=== PATIENT | male | born 1935 | race Caucasian/White ===

== ENCOUNTER → 2016-10-29 | Outpatient (CLI) | payer MEDICARE ==
--- NOTE | 2016-10-29 16:55 | PCVCIMAG ---
EXAM: BILATERAL LOWER EXTREMITY ARTERIAL DUPLEX INDICATION: Peripheral Arterial Disease. Leg pain. FINDINGS: Right Leg: Satisfactory arterial waveforms throughout the common/profunda/superficial femoral, popliteal, anterior tibial, peroneal, and posterior tibial arteries. No flow limiting stenosis seen. Left Leg: Satisfactory arterial waveforms throughout the common/profunda/superficial femoral, popliteal, anterior tibial, peroneal, and posterior tibial arteries. No flow limiting stenosis seen. IMPRESSION: No flow limiting stenosis in the right lower extremity. No flow limiting stenosis in the left lower extremity. LOC:[id number]
== END | disposition home or self-care (01) ==
LOC: PCVCIMAG 14:58
PROVIDERS: ATTEND Nuclear Medicine Nuclear Cardiology
DX: I73.9 Peripheral vascular disease, unspecified (principal); I48.91 Unspecified atrial fibrillation; I44.2 Atrioventricular block, complete; I42.8 Other cardiomyopathies; I10 Essential (primary) hypertension; E78.00 Pure hypercholesterolemia, unspecified; I87.2 Venous insufficiency (chronic) (peripheral); Z79.01 Long term (current) use of anticoagulants; Z95.0 Presence of cardiac pacemaker; Z88.6 Allergy status to analgesic agent; Z79.899 Other long term (current) drug therapy; Z96.653 Presence of artificial knee joint, bilateral
CPT/HCPCS: 93925; G0463

== ENCOUNTER → 2016-10-31 | Outpatient (CLI) | payer MEDICARE ==
--- NOTE | 2016-11-01 08:14 | PCVCIMAG ---
EXAM: NONINVASIVE ARTERIAL EXAMINATION OF BOTH LOWER EXTREMITIES INCLUDING PRE AND POST EXERCISE PRESSURE MEASUREMENTS AND DOPPLER WAVEFORMS INDICATION: Peripheral Arterial Disease. Leg pain. FINDINGS: Right Brachial: 143 mm Hg. Right Dorsalis Pedis: 157 mm Hg. Right Posterior Tibial: 133 mm Hg. Right YANETH = 1.03. Left Brachial: 152 mm Hg. Left Dorsalis Pedis: 242 mm Hg. Left Posterior Tibial: 107 mm Hg. Left YANETH = 1.59. Post Exercise: Left Brachial 158 mm Hg. Right dorsalis pedis: 195 mm Hg. Left dorsalis pedis: 206 mm Hg. Right YANETH = 1.23. Left YANETH = 1.30. IMPRESSION: No resting ischemia in the right lower extremity. No exercise induced ischemia in the right lower extremity. No resting ischemia in the left lower extremity. No exercise induced ischemia in the left lower extremity. LOC:[id number]
== END | disposition home or self-care (01) ==
LOC: PCVCIMAG 10:10
PROVIDERS: ATTEND Nuclear Medicine Nuclear Cardiology
DX: I73.9 Peripheral vascular disease, unspecified (principal); R60.0 Localized edema
CPT/HCPCS: 93923; 93924

== ENCOUNTER → 2018-06-20 | Outpatient (CLI) | payer MEDICARE ==
--- NOTE | 2018-06-20 16:19 | PCVCIMAG ---
EXAM: BILATERAL SUPERFICIAL VENOUS DUPLEX INDICATION: Leg pain and swelling. FINDINGS: Right leg: No thrombus in the common femoral, main femoral, or popliteal veins. These veins are compressible. Right Great Saphenous Vein: At the saphenofemoral junction the diameter is 8.9 mm, in the mid thigh it is 6.0 mm, and in the calf it is 5.9 mm. There is significant venous insufficiency/reflux throughout. Venous insufficiency/reflux duration is 1.7 seconds. Right Small Saphenous Vein: At the saphenopopliteal junction the diameter is 10.4 mm, and in the calf it is 8.2 mm. There is significant venous insufficiency/reflux throughout. Venous insufficiency/reflux duration is 3.3 seconds. There is not a cranial extension present. Left leg: No thrombus in the common femoral, main femoral, or popliteal veins. These veins are compressible. Left Great Saphenous Vein: At the saphenofemoral junction the diameter is 9.4 mm, in the mid thigh it is 6.0 mm, and in the calf it is 7.5 mm. There is significant venous insufficiency/reflux throughout. Venous insufficiency/reflux duration is 3.9 seconds. Left Small Saphenous Vein: At the saphenopopliteal junction the diameter is 10.4 mm, and in the calf it is 7.8 mm. There is significant venous insufficiency/reflux throughout. Venous insufficiency/reflux duration is 3.8 seconds. There is not a cranial extension present. IMPRESSION: Right Great Saphenous Vein: Significant venous insufficiency/reflux is present as noted above. Right Small Saphenous Vein: Significant venous insufficiency/reflux is present as noted above. Left Great Saphenous Vein: Significant venous insufficiency/reflux is present as noted above. Left Small Saphenous Vein: Significant venous insufficiency/reflux is present as noted above. LOC:[id number]
== END | disposition home or self-care (01) ==
LOC: PCVCIMAG 14:52
PROVIDERS: ATTEND Nuclear Medicine Nuclear Cardiology
DX: I87.2 Venous insufficiency (chronic) (peripheral) (principal)
CPT/HCPCS: 93970

== ENCOUNTER → 2018-06-24 | Outpatient (CLI) | payer MEDICARE | END | disposition home or self-care (01) | LOC: PCVCCLINIC 10:35 | PROVIDERS: ATTEND Nuclear Medicine Nuclear Cardiology | DX: I87.2 Venous insufficiency (chronic) (peripheral) (principal); I10 Essential (primary) hypertension; I48.91 Unspecified atrial fibrillation; E78.00 Pure hypercholesterolemia, unspecified; Z79.01 Long term (current) use of anticoagulants; Z95.0 Presence of cardiac pacemaker; Z79.899 Other long term (current) drug therapy; Z88.5 Allergy status to narcotic agent | CPT/HCPCS: G0463 ==

== ENCOUNTER → 2018-06-26 | Outpatient (CLI) | payer MEDICARE ==
[~2018-06-26] MED LIST: DIAZEPAM 10 MG TABLET. ONE; HEPARIN for SUB-Q USE 5,000 UNIT/ML VIAL. SQ ONE; IOHEXOL 300 MG/ML 100ML VIAL. ONE; IV NORMAL SALINE 500ML BAG 500 ML ONE; LIDOCAINE 1% Multi-Dose 20 ML VIAL. ONE; MIDAZOLAM HCL/PF 2 MG/2 ML VIAL. ONE; fentaNYL PF VIAL 100 MCG/2 ML VIAL ONE
--- NOTE | 2018-06-26 13:03 | PCVCINTER ---
EXAM: 1. INTRAVASCULAR ULTRASOUND OF THE INFERIOR VENA CAVA 2. INTRAVASCULAR ULTRASOUND OF THE RIGHT COMMON AND EXTERNAL ILIAC AND COMMON FEMORAL VEINS 3. INTRAVASCULAR ULTRASOUND OF THE LEFT COMMON AND EXTERNAL ILIAC AND COMMON FEMORAL VEINS 4. INFERIOR VENA CAVA AND BILATERAL ILIOFEMORAL VENOGRAPHY INDICATION: Iliofemoral venous obstruction. Chronic Venous Insufficiency Class 5. Leg pain and swelling. Failed conservative therapy including medical grade compression stockings for at least 3 months. Venous hypertension chronic. PROCEDURE: Procedure and risks of IVC and ileofemoral venography and intravascular ultrasound, and venous stent placement as appropriate including bleeding, infection, venous thrombosis, stent migration/thrombosis, contrast-induced nephropathy requiring dialysis, stroke, and were discussed with the patient and consent obtained. Patient was given IV antibiotics. The patient's right neck and chest was prepped and draped in the normal sterile fashion. IV conscious sedation was used throughout the procedure with appropriate monitoring. Ultrasound was used to interrogate the neck and showed the internal jugular vein to be patent. A spot ultrasound image of the internal jugular vein was saved. Under ultrasound guidance access into the right internal jugular vein was obtained and an 8F sheath was placed to the level of the lower IVC. Catheter was placed into the lower IVC and IVC cavogram performed. Catheter was placed to the level of the right common femoral vein and right iliofemoral venogram obtained. Catheter was placed to the level of the left common femoral vein and left iliofemoral venogram was obtained. The 8 [place] intravascular ultrasound catheter was then placed to the level of the right common femoral vein and intravascular ultrasound evaluation of the right common femoral, right external iliac, and right common iliac veins was accomplished in a pull-back fashion. The 8 [place] intravascular ultrasound catheter was then placed to the level of the left common femoral vein and intravascular ultrasound evaluation of the left common femoral, left external iliac, and left common iliac veins was accomplished in a pull-back fashion. Intravascular ultrasound evaluation of the inferior vena cava was then accomplished in a pullback fashion. Sheath was removed and hemostasis obtained using manual pressure. FINDINGS: IVC INTRAVASCULAR ULTRASOUND: Normal vessel: 20.5 x 24.5 mm. Area = 398.1 sq. mm. RIGHT COMMON ILIAC VEIN INTRAVASCULAR ULTRASOUND: Normal vessel: 12.2. x 19.3 mm. Area = 196.1 sq. mm. RIGHT EXTERNAL ILIAC VEIN INTRAVASCULAR ULTRASOUND: Normal vessel: 15.1 x 19.1 mm. Area = 229.9 sq. mm. RIGHT COMMON FEMORAL VEIN INTRAVASCULAR ULTRASOUND: Normal vessel: 7.5 x 14.6 mm. Area = 97.6 sq. mm. Minimum vessel diameter: 3.7 x 17.0 mm. Area = 57.9 sq. mm. LEFT COMMON ILIAC VEIN INTRAVASCULAR ULTRASOUND: Normal vessel: 17.2 x 23.8 mm. Area = 314.4 sq. mm. Minimum vessel diameter: 6.0 x 15.0 mm. Area = 63.2 sq. mm. LEFT EXTERNAL ILIAC VEIN INTRAVASCULAR ULTRASOUND: Normal vessel: 15.1 x 16.3 mm. Area = 193.2 sq. mm. Minimum vessel diameter: 5.2 x 16.8 mm. Area = 76.8 sq. mm. LEFT COMMON FEMORAL VEIN INTRAVASCULAR ULTRASOUND: Normal vessel: 16.9 x 17.5 mm. Area = 245.0 sq. mm. VENOGRAPHY: INFERIOR VENA CAVA: Vessel is patent without significant stenosis, scarring, or extrinsic compression. RIGHT COMMON ILIAC VEIN: Vessel is patent without significant stenosis, scarring, or extrinsic compression. RIGHT EXTERNAL ILIAC VEIN: Moderate extrinsic compression proximal vessel results in 57% area reduction. RIGHT COMMON FEMORAL VEIN: Mild extrinsic compression proximal vessel results in 41% area reduction. LEFT COMMON ILIAC VEIN: Moderately severe extrinsic compression mid to lower vessel results in 80% area reduction although the absolute area remained greater than 50. LEFT EXTERNAL ILIAC VEIN: Moderate extrinsic compression distal vessel results in 60% area reduction. LEFT COMMON FEMORAL VEIN: Vessel is patent without significant stenosis, scarring, or extrinsic compression. IMPRESSION: Areas of at least moderate extrinsic compression involving the proximal right external iliac vein, mid to lower left common iliac vein, and distal left external iliac vein were identified as reviewed above. These areas were not felt to be critically flow-limiting. LOC:[id number]
== END | disposition home or self-care (01) ==
LOC: PCVCIMAG 09:25
PROVIDERS: ATTEND Nuclear Medicine Nuclear Cardiology
DX: I87.2 Venous insufficiency (chronic) (peripheral) (principal); I87.1 Compression of vein; I48.91 Unspecified atrial fibrillation; I44.2 Atrioventricular block, complete; I42.8 Other cardiomyopathies; I10 Essential (primary) hypertension; E78.00 Pure hypercholesterolemia, unspecified; Z79.01 Long term (current) use of anticoagulants; G47.30 Sleep apnea, unspecified; Z95.0 Presence of cardiac pacemaker; Z98.890 Other specified postprocedural states; Z96.653 Presence of artificial knee joint, bilateral; Z96.642 Presence of left artificial hip joint; Z72.89 Other problems related to lifestyle; Z88.6 Allergy status to analgesic agent; Z79.899 Other long term (current) drug therapy
CPT/HCPCS: 36012; 37252; 37253; 75822; 75825; 76937; 99152; 99153; C1751; C1753; C1769; C1894; J1644; J2250; J3010; J7040; Q9967

== ENCOUNTER → 2018-06-30 | Outpatient (CLI) | payer MEDICARE ==
[~2018-06-30] MED LIST changes: +ARNICA TOPICAL GEL 1.5OZ TUBE. TP ONE; +CEPHALEXIN 250 MG CAPSULE. ONE; -HEPARIN for SUB-Q USE 5,000 UNIT/ML VIAL. SQ ONE; -IOHEXOL 300 MG/ML 100ML VIAL. ONE; +IV NORMAL SALINE 1000ML BAG 1,000 ML ONE; -IV NORMAL SALINE 500ML BAG 500 ML ONE; -LIDOCAINE 1% Multi-Dose 20 ML VIAL. ONE; +LIDOCAINE 1%/EPI 1:100,000 20 ML VIAL. ONE; -MIDAZOLAM HCL/PF 2 MG/2 ML VIAL. ONE; +SODIUM BICARBONATE 50 MEQ/50 ML VIAL. ONE; -fentaNYL PF VIAL 100 MCG/2 ML VIAL ONE
--- NOTE | 2018-06-30 22:36 | PCVCINTER ---
EXAM: RIGHT GREAT SAPHENOUS VEIN ENDOVENOUS LASER ABLATION INDICATION: Chronic Venous Insufficiency Class 5. Leg pain and swelling. Failed conservative therapy including medical grade compression stockings for at least 3 months. Venous hypertension chronic. PROCEDURE: Procedure and risks of endovenous laser ablation including thrombosis, vascular injury, nerve injury, skin necrosis, and infection were discussed with the patient and consent obtained. The right leg was prepped and draped in the normal sterile fashion. Using ultrasound guidance access into the right great saphenous vein was obtained and a 5F 70 cm long catheter was advanced to 2 cm below the saphenofemoral junction. The laser fiber was advanced through the catheter to its tip and the catheter partially retracted. Abundant tumescent anesthesia using a dilute lidocaine solution was given in the perivenous tissues throughout the length of the laser fiber. Ultrasound confirmed good position of the distal tip of the laser fiber as well as direct transcutaneous visualization. The 1470 Dornier laser was set to 6 cardozo and a slow continuous pull-back technique employed to deliver 2679 Joules throughout the treated segment. Catheter and fiber were removed and hemostasis obtained. No immediate complications. The leg was dressed and wrapped appropriately and reinforced with a compression stocking. IMPRESSION: Satisfactory endovenous laser ablation of the right great saphenous vein. EXAM: RIGHT SMALL SAPHENOUS VEIN ENDOVENOUS LASER ABLATION INDICATION: Chronic Venous Insufficiency Class 5. Leg pain and swelling. Failed conservative therapy including medical grade compression stockings for at least 3 months. Venous hypertension chronic. PROCEDURE: Procedure and risks of endovenous laser ablation including thrombosis, vascular injury, nerve injury, skin necrosis, and infection were discussed with the patient and consent obtained. The right leg was prepped and draped in the normal sterile fashion. Using ultrasound guidance access into the right small saphenous vein was obtained and a 5F 30 cm long catheter was advanced to 2 cm below the saphenopopliteal junction. The laser fiber was advanced through the catheter to its tip and the catheter partially retracted. Abundant tumescent anesthesia using a dilute lidocaine solution was given in the perivenous tissues throughout the length of the laser fiber. Ultrasound confirmed good position of the distal tip of the laser fiber as well as direct transcutaneous visualization. The 1470 Dornier laser was set to 5 cardozo and a slow continuous pull-back technique employed to deliver 1115 Joules throughout the treated segment. Catheter and fiber were removed and hemostasis obtained. No immediate complications. The leg was dressed and wrapped appropriately and reinforced with a compression stocking. IMPRESSION: Satisfactory endovenous laser ablation of the right small saphenous vein. LOC:[id number]
== END | disposition home or self-care (01) ==
LOC: PCVCINTER 09:25
PROVIDERS: ATTEND Nuclear Medicine Nuclear Cardiology
DX: I83.811 Varicose veins of right lower extremity with pain (principal); I87.2 Venous insufficiency (chronic) (peripheral); I10 Essential (primary) hypertension; E78.00 Pure hypercholesterolemia, unspecified; I48.91 Unspecified atrial fibrillation; I44.2 Atrioventricular block, complete; I42.8 Other cardiomyopathies; Z79.01 Long term (current) use of anticoagulants; Z95.0 Presence of cardiac pacemaker; G47.30 Sleep apnea, unspecified; Z98.890 Other specified postprocedural states; Z96.653 Presence of artificial knee joint, bilateral; Z96.642 Presence of left artificial hip joint; Z82.49 Family history of ischemic heart disease and other diseases of the circulatory system; Z88.6 Allergy status to analgesic agent
CPT/HCPCS: 36478; 36479; C1751; C1769; C1894; J3490; J7030

== ENCOUNTER → 2018-08-08 | Outpatient (CLI) | payer MEDICARE ==
--- NOTE | 2018-08-08 18:27 | PCVCIMAG ---
EXAM: LEFT SUPERFICIAL VENOUS DUPLEX INDICATION: Leg pain and swelling. FINDINGS: Left leg: No thrombus in the common femoral, main femoral, or popliteal veins. These veins are compressible. Left Great Saphenous Vein: Occlusion throughout the length of the left great saphenous vein consistent with satisfactory prior ablation procedure. Left Small Saphenous Vein: Occlusion throughout the length of the left small saphenous vein consistent with satisfactory prior ablation procedure. IMPRESSION: Left Great Saphenous Vein: Satisfactory post ablation change in the left great saphenous vein. Left Small Saphenous Vein: Satisfactory post ablation change in the left small saphenous vein. LOC:[id number]
== END | disposition home or self-care (01) ==
LOC: PCVCIMAG 13:29
PROVIDERS: ATTEND Nuclear Medicine Nuclear Cardiology
DX: I82.812 Embolism and thrombosis of superficial veins of left lower extremity (principal); M79.605 Pain in left leg
CPT/HCPCS: 93971